=== PATIENT | female | born 1950 | race Caucasian/White ===

== ENCOUNTER 2022-05-04 11:58 | Emergency (ER) | payer MEDICARE, OTHER ==
[2022-05-04 12:25] LABS: Absolute Neutrophil Ct (ANC) 8.36 x10^3/uL (1.4-6.9); Basophil (Absolute #) 0.04 x10^3/uL (0-0.4); Eosinophil % 0.4 % (0.00-5.0); Eosinophil (Absolute #) 0.04 x10^3/uL (0-0.5); Hematocrit 38.8 % (35-47); Hemoglobin 12.6 g/dL (12.0-16.0); Lymphocyte (Absolute #) 1.41 x10^3/uL (1.0-4.6); Lymphocytes % 13.3 % (24.0-44.0); Mean Cell Volume 92.2 fL (78-100); Mean Corpuscular Hemoglobin 29.9 pg (26-32); Mean Corpuscular Hgb Concent. 32.5 g/dL (32-36); Mean Platelet Volume 9.7 fL (7.5-11.0); Monocyte (Absolute #) 0.68 x10^3/uL (0.0-1.3); Monocytes % 6.4 % (0.0-12.0); Neutrophil % 79.1 % (36.0-66.0); Platelet Count 286 x10^3/uL (150-450); Red Blood Count 4.21 x10^6/uL (4.1-5.4); Red Cell Distribution Width 13.3 % (11.5-14.0); White Blood Count 10.6 x10^3/uL (4.0-10.5)
--- NOTE | 2022-05-04 12:43 | XRAY ---
Indication: Chest pain. Comparison: None Portable chest clear with COPD with small right mid lung calcified granuloma. Heart not enlarged. Bony thorax intact with osteopenia and minimal dextroscoliosis.
[2022-05-04 12:45] LABS: ALBUMIN 4.2 g/dL (3.5-5.0); ALKALINE PHOSPHATASE 93 U/L (38-126); ANION GAP 11.5 MEQ/L (5-15); BLOOD UREA NITROGEN 14 mg/dL (7-17); CHLORIDE 105 mmol/L (98-107); Calcium 9.2 mg/dL (8.4-10.2); Carbon Dioxide 26 mmol/L (22-30); Creatinine 1 0.76 mg/dL (0.52-1.04); EST GLOMERULAR FILTRATION RATE > 60.0 ML/MIN; Glucose 166 mg/dL (74-106); NT PRO BNP 67.9 pg/mL (0-900); Potassium 3.7 mmol/L (3.5-5.1); SGOT/AST 26 U/L (14-36); SGPT/ALT 18 U/L (0-35); SODIUM 138 mmol/L (137-145); Total Protein 7.5 g/dL (6.3-8.2)
[2022-05-04] MEDS ORDERED: BABY ASPIRIN 81 MG CHEW PO ONE (13:47)
[2022-05-04] MEDS ORDERED: NITRO-BID 2% UD PACKETS TOP ONE (13:48)
--- NOTE | 2022-05-04 13:48 | ERPHSYRPT ---
- History of Present Illness Time Seen by Provider: 05/04/22 12:10 Historian: patient Exam Limitations: no limitations Patient Subjective Stated Complaint: chest pain x 2 days Triage Nursing Assessment: pt to ED c/o CP x 2 days. no assosicated complaints at this time. heart sounds clear, lungs clear and equal bilaterally. pt reports pain started while trying to sell her house 2 days ago. has seen card feeder 15 years ago but no cardiac hx since then. rates 5/10 at this time, pain does not radiate. Physician History: Patient is a 71-year-old female presents to emergency department for evaluation of chest pain that radiates to her right arm and back. Chest pain started 2 days ago. Pain described as an ache that is substernal. No radiation. No associated nausea vomiting or diaphoresis. Patient denies any heart history. Patient states she saw card feeder about 15 years ago and has not had a follow- up. Pain rated 5 out of 10. No specific worsening or improving factors. Patient otherwise feels well. Patient voices no other complaints or concerns at this time. Portions of this note were created with voice recognition technology. There may be grammatical, spelling, punctuation or sound alike errors Timing/Duration: day(s) (2 days ago) Activities at Onset: none Quality: aching Location: substernal Chest Pain Radiation: no radiation Severity of Pain-Max: moderate Severity of Pain-Current: mild Associated Symptoms: denies symptoms Prior Chest Pain/Cardiac Workup: no prior chest pain Nitro Today/Relief: no nitro taken today Aspirin Treatment Today: no aspirin today Allergies/Adverse Reactions: Penicillins Allergy (Verified 05/04/22 12:00) Iodinated Contrast Media Adverse Reaction (Verified 05/04/22 14:46) Hx Tetanus, Diphtheria Vaccination/Date Given: Yes Hx Influenza Vaccination/Date Given: Yes Hx Pneumococcal Vaccination/Date Given: Yes Immunizations Up to Date: Yes Travel Risk - International Travel Have you traveled outside of the country in past 3 weeks: No - Coronavirus Screening Are you exhibiting any of the following symptoms?: No Close contact with a COVID-19 positive Pt in past 14-21 Days: No - Vaccine Status Have you recieved a Covid-19 vaccination: Yes Medical Editor: Moderna - Vaccination Dates Date of 2cond Vaccination (if applicable): 2020 - Review of Systems Constitutional: No Symptoms, No Fever, No Chills Eyes: No Symptoms Ears, Nose, & Throat: No Symptoms Respiratory: No Symptoms, No Cough, No Dyspnea Cardiac: No Symptoms, No Chest Pain, No Edema, No Syncope Abdominal/Gastrointestinal: No Symptoms, No Abdominal Pain, No Nausea, No Vomiting, No Diarrhea Genitourinary Symptoms: No Symptoms, No Dysuria Musculoskeletal: No Symptoms, No Back Pain, No Neck Pain Skin: No Symptoms, No Rash Neurological: No Symptoms, No Dizziness, No Focal Weakness, No Sensory Changes Psychological: No Symptoms Endocrine: No Symptoms Hematologic/Lymphatic: No Symptoms Immunological/Allergic: No Symptoms All Other Systems: Reviewed and Negative - Past Medical History Pertinent Past Medical History: Yes Neurological History: No Pertinent History ENT History: No Pertinent History Cardiac History: Other Respiratory History: No Pertinent History Endocrine Medical History: No Pertinent History Musculoskeletal History: Osteoporosis GI Medical History: No Pertinent History History: No Pertinent History Psycho-Social History: No Pertinent History Female Reproductive Disorders: No Pertinent History Other Medical History: mitral valve prolapse dx 15 years ago, then told she did not have it by another card feeder. - Past Surgical History Past Surgical History: Yes Neuro Surgical History: No Pertinent History Cardiac: No Pertinent History Respiratory: No Pertinent History Gastrointestinal: No Pertinent History Genitourinary: No Pertinent History Musculoskeletal: No Pertinent History Female Surgical History: No Pertinent History Other Surgical History: bunyonectomy - Social History Smoking Status: Current some day smoker How long have you smoked: years Exposure to second hand smoke: No Drug Use: none Patient Lives Alone: Yes - Nursing Vital Signs Nursing Vital Signs: Initial Vital Signs Temperature 98.1 F 05/04/22 12:04 Pulse Rate 117 H 05/04/22 12:04 Respiratory Rate 18 05/04/22 12:04 Blood Pressure 115/78 05/04/22 12:04 O2 Sat by Pulse Oximetry 95 05/04/22 12:04 Pain Scale Pain Intensity 4 - Physical Exam General Appearance: no apparent distress, alert Eye Exam: PERRL/EOMI, eyes nml inspection Ears, Nose, Throat Exam: normal ENT inspection, TMs normal, pharynx normal, moist mucous membranes Neck Exam: normal inspection, non-tender, supple, full range of motion Respiratory Exam: normal breath sounds, lungs clear, airway intact, No respiratory distress Cardiovascular Exam: regular rate/rhythm, normal heart sounds, normal peripheral pulses Gastrointestinal/Abdomen Exam: soft, normal bowel sounds, distention, No tenderness, No mass Back Exam: normal inspection, No CVA tenderness, No vertebral tenderness Extremity Exam: normal inspection, normal range of motion Neurologic Exam: alert, oriented x 3, cooperative, normal mood/affect, sensation nml, No motor deficits Skin Exam: normal color, warm, dry SpO2 Interpretation: normal SpO2: 95 O2 Delivery: Room Air - Course Nursing assessment & vital signs reviewed: Yes EKG Interpreted by Me: RATE ([id number]), Sinus Tach, NORMAL AXIS, NORMAL INTERVALS - Radiology Exams Chest X-ray Interpretation: Teleradiologist Report (COPD, right lung calcified granuloma, dextroscoliosis) Ordered Tests: Active Orders 24 hr Category Date Time Status Park Naturalist STAT Care 05/04/22 11:59 Active EKG-ER Only STAT Care 05/04/22 11:59 Active IV Insertion STAT Care 05/04/22 11:59 Active Pulse Oximetry (ED) STAT Care 05/04/22 11:59 Active CHEST 1 VIEW (PORTABLE) Stat Exams 05/04/22 11:59 Completed CBC W DIFF Stat Lab 05/04/22 12:15 Completed CMP Stat Lab 05/04/22 12:15 Completed D-DIMER QUANTITATIVE Stat Lab 05/04/22 14:09 Completed NT PRO BNP Stat Lab 05/04/22 12:15 Completed TROPONIN Q4H Lab 05/04/22 12:15 Completed TROPONIN Q4H Lab 05/04/22 16:12 Completed TROPONIN Q4H Lab 05/04/22 20:00 Ordered TSH [TSH, 3RD Generation] Stat Lab 05/04/22 14:09 Completed Medication Summary Discontinued Medications Generic Name Dose Route Start Last Admin Trade Name Freq PRN Reason Stop Dose Admin Al Hydrox/Mg Hydrox/Simethicone Confirm 05/04/22 17:45 Mag Hydrox/Al Hydrox/Simeth 30 Ml Udcup Administered 05/04/22 17:46 Dose 30 ml .ROUTE .STK-MED ONE Aspirin 324 mg 05/04/22 13:47 05/04/22 13:55 Aspirin 81 Mg Tab.Chew PO 05/04/22 13:48 324 mg STAT ONE Administration Lidocaine HCl Confirm 05/04/22 17:44 Lidocaine Hcl 2% Viscous 15 Ml Udcup Administered 05/04/22 17:45 Dose 15 ml .ROUTE .STK-MED ONE Magnesium Hydroxide 45 ml 05/04/22 17:38 05/04/22 17:47 Mag Hydrx/Alum Hyd/Simeth/Lido 45 Ml Bottle PO 05/04/22 17:39 45 ml STAT ONE Administration Metoprolol Tartrate 25 mg 05/04/22 17:39 05/04/22 17:46 Metoprolol Tartrate 25 Mg Tab PO 05/04/22 17:40 25 mg STAT ONE Administration Metoprolol Tartrate Confirm 05/04/22 17:44 Metoprolol Tartrate 25 Mg Tab Administered 05/04/22 17:45 Dose 25 mg .ROUTE .STK-MED ONE Nitroglycerin 1 gm 05/04/22 13:48 05/04/22 13:56 Nitroglycerin 1 Gm Packet TOP 05/04/22 13:49 1 gm STAT ONE Administration Nitroglycerin Confirm 05/04/22 13:56 Nitroglycerin 1 Gm Packet Administered 05/04/22 13:57 Dose 1 gm .ROUTE .STK-MED ONE Lab/Rad Data: Laboratory Result Diagrams 05/04/22 12:15 05/04/22 12:15 Laboratory Results 05/04/22 05/04/22 05/04/22 Range/Units 16:12 14:09 14:09 WBC (4.0-10.5) x10^3/uL RBC (4.1-5.4) x10^6/uL Hgb (12.0-16.0) g/dL Hct (35-47) % MCV (78-100) fL MCH (26-32) pg MCHC (32-36) g/dL RDW (11.5-14.0) % Plt Count (150-450) x10^3/uL MPV (7.5-11.0) fL Gran % (36.0-66.0) % Immature Gran % (Auto) (0.00-0.4) % Nucleat RBC Rel Count (0.00-0.1) % Eos # (Auto) (0-0.5) x10^3/uL Immature Gran # (Auto) (0.00-0.03) x10^3u/L Absolute Lymphs (auto) (1.0-4.6) x10^3/uL Absolute Monos (auto) (0.0-1.3) x10^3/uL Absolute Nucleated RBC (0.00-0.01) x10^3u/L Lymphocytes % (24.0-44.0) % Monocytes % (0.0-12.0) % Eosinophils % (0.00-5.0) % Basophils % (0.0-0.4) % Absolute Granulocytes (1.4-6.9) x10^3/uL Basophils # (0-0.4) x10^3/uL D-Dimer 0.63 H* (0.0-0.50) mg/L Sodium (137-145) mmol/L Potassium (3.5-5.1) mmol/L Chloride (98-107) mmol/L Carbon Dioxide (22-30) mmol/L Anion Gap (5-15) MEQ/L BUN (7-17) mg/dL Creatinine (0.52-1.04) mg/dL Estimated GFR ML/MIN Glucose (74-106) mg/dL Calcium (8.4-10.2) mg/dL Total Bilirubin (0.2-1.3) mg/dL AST (14-36) U/L ALT (0-35) U/L Alkaline Phosphatase (38-126) U/L Troponin I < 0.012 (0.000-0.034) ng/mL NT-Pro-B Natriuret Pep (0-900) pg/mL Serum Total Protein (6.3-8.2) g/dL Albumin (3.5-5.0) g/dL TSH 3rd Generation 1.220 (0.47-4.68) mIU/L 05/04/22 05/04/22 05/04/22 Range/Units 12:15 12:15 12:15 WBC 10.6 H (4.0-10.5) x10^3/uL RBC 4.21 (4.1-5.4) x10^6/uL Hgb 12.6 (12.0-16.0) g/dL Hct 38.8 (35-47) % MCV 92.2 (78-100) fL MCH 29.9 (26-32) pg MCHC 32.5 (32-36) g/dL RDW 13.3 (11.5-14.0) % Plt Count 286 (150-450) x10^3/uL MPV 9.7 (7.5-11.0) fL Gran % 79.1 H (36.0-66.0) % Immature Gran % (Auto) 0.4 (0.00-0.4) % Nucleat RBC Rel Count 0.0 (0.00-0.1) % Eos # (Auto) 0.04 (0-0.5) x10^3/uL Immature Gran # (Auto) 0.04 H (0.00-0.03) x10^3u/L Absolute Lymphs (auto) 1.41 (1.0-4.6) x10^3/uL Absolute Monos (auto) 0.68 (0.0-1.3) x10^3/uL Absolute Nucleated RBC 0.00 (0.00-0.01) x10^3u/L Lymphocytes % 13.3 L (24.0-44.0) % Monocytes % 6.4 (0.0-12.0) % Eosinophils % 0.4 (0.00-5.0) % Basophils % 0.4 (0.0-0.4) % Absolute Granulocytes 8.36 H (1.4-6.9) x10^3/uL Basophils # 0.04 (0-0.4) x10^3/uL D-Dimer (0.0-0.50) mg/L Sodium 138 (137-145) mmol/L Potassium 3.7 (3.5-5.1) mmol/L Chloride 105 (98-107) mmol/L Carbon Dioxide 26 (22-30) mmol/L Anion Gap 11.5 (5-15) MEQ/L BUN 14 (7-17) mg/dL Creatinine 0.76 (0.52-1.04) mg/dL Estimated GFR > 60.0 ML/MIN Glucose 166 H (74-106) mg/dL Calcium 9.2 (8.4-10.2) mg/dL Total Bilirubin 0.40 (0.2-1.3) mg/dL AST 26 (14-36) U/L ALT 18 (0-35) U/L Alkaline Phosphatase 93 (38-126) U/L Troponin I < 0.012 (0.000-0.034) ng/mL NT-Pro-B Natriuret Pep 67.9 (0-900) pg/mL Serum Total Protein 7.5 (6.3-8.2) g/dL Albumin 4.2 (3.5-5.0) g/dL TSH 3rd Generation (0.47-4.68) mIU/L - Progress Progress: improved Air Movement: good Progress Note: Patient reassessed. She feels well. Case discussed with Dr. Mcqueen who advises discharge. Troponin negative x2. Dr. Mcqueen advises administering a GI cocktail and a beta-davida for the elevated heart rate. Heart rate was 103. Patient's troponin is negative however age-adjusted troponin is negative per Dr. Mcqueen. Dr. Mcqueen does not want a CTA chest performed in light of the negative age-adjusted troponin. EKG normal sinus rhythm. Chest x-ray negative for acute pathology Dr. Mcqueen states she will follow-up with patient within 48 hours for evaluation. Patient voices no other complaints or concerns at this time. Will discharge home. Portions of this note were created with voice recognition technology. There may be grammatical, spelling, punctuation or sound alike errors 05/04/22 18:26 Blood Culture(s) Obtained: No Antibiotics given: No Discussed with : Alejandro Will see patient in: office Counseled pt/family regarding: lab results, diagnosis, need for follow-up, rad results - Departure Departure Disposition: Home Clinical Impression: Dextroscoliosis, COPD (chronic obstructive pulmonary disease), Smoker, Chest pain, Tachycardia, ACS (acute coronary syndrome), Osteopenia Condition: Stable Critical Care Time: No Referrals: TJ MARROQUIN DO [Primary Care Provider] - Follow up/PCP as directed Instructions: Chronic Obstructive Pulmonary Disease Additional Instructions: Please follow-up with Dr. Mcqueen within 48 hours for evaluation. Discharge/Care Plan SHONABRET Johnson was seen on 05/04/22 in the Emergency Room. The patient was counseled regarding Diagnosis,Lab results, Imaging studies, need for follow up and when to return to the Emergency Room. Prescriptions given: Discharge Note I have spoken with the patient and/or caregivers. I have explained the patient's condition, diagnosis and treatment plan based on the information available to me at this time. I have answered the patient's and/or caregiver's questions and addressed any concerns. The patient and/or caregivers have as good understanding of the patient's diagnosis, condition and treatment plan as can be expected at this point. The vital signs have been stable. The patient's condition is stable and appropriate for discharge from the emergency department. The patient will pursue further outpatient evaluation with the primary care physician or other designated or consulting physician as outlined in the discharge instructions. The patient and/or caregivers are agreeable to this plan of care and follow-up instructions have been explained in detail. The patient and/or caregivers have received these instruction. The patient/and or caregivers are aware that any significant change in condition or worsening of symptoms should prompt an immediate return to this or the closest emergency department or call 911.
[2022-05-04] MEDS ORDERED: NITRO-BID 2% UD PACKETS ONE (13:56)
[2022-05-04] MEDS ORDERED: GI COCKTAIL 45 ML (Maalox/Lidocaine) PO ONE (17:38)
[2022-05-04] MEDS ORDERED: Lopressor 25MG Tab PO ONE (17:39)
[2022-05-04] MEDS ORDERED: Lopressor 25MG Tab ONE (17:44)
[2022-05-04] MEDS ORDERED: XYLOCAINE VISCOUS 2% 15 ML CUP ONE (17:44)
[2022-05-04] MEDS ORDERED: MAALOX ES 30 ML UNIT DOSE ONE (17:45)
[2022-05-04 19:08] VITALS: BP 100/58; PULSE 85; O2SAT 98
== END 2022-05-04 19:08 | disposition home or self-care (01) ==
LOC: ED 11:58
DX: I24.9 Acute ischemic heart disease, unspecified (principal); J44.9 Chronic obstructive pulmonary disease, unspecified; M41.9 Scoliosis, unspecified; R07.9 Chest pain, unspecified; R00.0 Tachycardia, unspecified; M85.80 Other specified disorders of bone density and structure, unspecified site; Z72.0 Tobacco use
CPT/HCPCS: 36000; 36415; 71045; 80053; 83880; 84443; 84484; 85025; 85379; 93005; 93041; 94760; 99284; A9270-GY